=== PATIENT | female | born 1950 | race Caucasian/White ===

== ENCOUNTER 2020-01-16 08:59 | Inpatient (IN) | payer MEDICARE ==
[~2020-01-16] VITALS: Ht 170.2 cm; Wt 112.9 kg
--- NOTE | 2020-01-16 09:10 | NUR ---
PT BIB RELATIVE C/O R sided facial droop/numbness since waking up this morning last known well 01/16/2020 10:00pm, PT IS AAOX4, NOT IN RESPIRATORY DISTRESS, HOOKED TO DEMAND EQUIPMENT REPAIRER, KEPT RESTED AND COMFORTABLE, WILL CONTINUE TO MONITOR.
--- NOTE | 2020-01-16 09:11 | NUR ---
IV LINE ESTABLISHED, BLOOD DRAWN AND SENT TO LAB.
--- NOTE | 2020-01-16 09:13 | NUR ---
SEEN AND EXAMINED BY
--- NOTE | 2020-01-16 09:15 | NUR ---
CODE STROKE ACTIVATED.
--- NOTE | 2020-01-16 09:15 | NUR ---
TELE STROKE ACTIVATED.
--- NOTE | 2020-01-16 09:16 | NUR ---
PT IS WHEELED TO CT SCAN VIA [facility].
[2020-01-16] MEDS ORDERED: CT SWABBABLE VALVE TRANS SET 1 EA INFUS.SET MC ONE (09:18)
[2020-01-16] MEDS ORDERED: IOHEXOL-350 100 ML VIAL IV ONE (09:18)
[2020-01-16] MEDS ORDERED: IV NS 0.9% 250 ML IV ONE (09:19)
[2020-01-16 09:20] LABS: BASOPHILS # (AUTO) 0.1 /CMM (0.0-0.2); BASOPHILS % (AUTO) 0.9 % (0.0-2.0); EOSINOPHILS % (AUTO) 2.3 % (0.0-6.0); HEMATOCRIT 41 % (33-45); HEMOGLOBIN 13.6 g/dL (11.5-14.8); LYMPHOCYTES # (AUTO) 2.4 /CMM (0.8-4.8); LYMPHOCYTES % (AUTO) 22.5 % (20.0-44.0); MEAN CORPUSCULAR HGB CONC 33 g/dl (31.0-36.0); MEAN CORPUSCULAR VOLUME 84 fL (82-100); MONOCYTES # (AUTO) 0.8 /CMM (0.1-1.30); MONOCYTES % (AUTO) 7.8 % (2.0-12.0); NEUTROPHILS % (AUTO) 66.5 % (43.0-81.0); PLATELET COUNT (AUTO) 353 /CMM (150-450); RED BLOOD CELL COUNT(AUTO) 4.88 MIL/uL (4.0-5.2); WHITE BLOOD COUNT (AUTO) 10.5 K/uL (4.3-11.0)
--- NOTE | 2020-01-16 09:26 | NUR ---
PT IS BACK FROM THE CT SCAN.
[2020-01-16 09:29] LABS: CARBON DIOXIDE 29 mmol/L (21-32); CHLORIDE 103 mmol/L (98-107); CREATININE 0.8 mg/dL (0.6-1.3); GLUCOSE 95 mg/dL (74-106); SODIUM SERUM 139 mmol/L (136-145); UREA NITROGEN, BLOOD 17 mg/dL (7-18)
[2020-01-16 09:34] LABS: ALANINE AMINOTRANSFERASE 19 U/L (12-78); ALBUMIN 3.6 g/dL (3.4-5.0); ALKALINE PHOSPHATASE 126 U/L (46-116); ASPARTATE AMINOTRANSFERASE 14 U/L (15-37); BILIRUBIN,DIRECT 0.1 mg/dL (0.0-0.2); BILIRUBIN,TOTAL 0.5 mg/dL (0.2-1.0)
[2020-01-16 09:37] LABS: CHOLESTEROL 177 mg/dL (<200); HDL CHOLESTEROL 62 mg/dL (40-60); LDL 103 mg/dL (0-99); TRIGLYCERIDES 48 mg/dL (30-150)
[2020-01-16] MEDS ORDERED: IPRA4AER IH (09:59)
[2020-01-16] MEDS ORDERED: FLUT12AE5 IH (09:59)
[2020-01-16] MEDS ORDERED: LOVA40TA2 PO (09:59)
[2020-01-16] MEDS ORDERED: LACT1CAP71 PO (09:59)
[2020-01-16] MEDS ORDERED: MULT-447 PO (09:59)
[2020-01-16] MEDS ORDERED: DIPH25CA51 PO (09:59)
[2020-01-16] MEDS ORDERED: OMEP20CA15 PO (09:59)
[2020-01-16] MEDS ORDERED: LEVO75TA7 PO (09:59)
[2020-01-16] MEDS ORDERED: HYDR12.55 PO (09:59)
[2020-01-16] MEDS ORDERED: LISI40TA4 PO (09:59)
[2020-01-16] MEDS ORDERED: CYCL5TAB PO (09:59)
[2020-01-16] MEDS ORDERED: GABA-534 PO (09:59)
[2020-01-16] MEDS ORDERED: NYST15OI2 TP (10:00)
--- NOTE | 2020-01-16 10:21 | NUR ---
NURSING SUP GAVE TELE BED 111-1.
--- NOTE | 2020-01-16 11:05 | NUR ---
REPORT GIVEN TO EVANGELINA GOMES FOR [facility]UGIE.
--- NOTE | 2020-01-16 11:38 | NUR ---
LICENSED THERAPIST NOTES PATIENT A/O X4 , PATIENT IN ROOM ARE SATURATING AT < 95 % . NO SOB, NO PAIN, NO ACUTE RESPIRATORY DISTRESS .PATIENT HAS NO SKIN ISSUES. FACIAL EXPRESS SYMMETRICAL. PATIENT SPEECH IS CLEAR AND COHERENT. PATIENT FOLLOWS COMMANDS . PATIENTS UPPER AND LOWEER EXTREMITIES WNL. PATINT HAS EXTERNAL CARDIAC MONTITOR 80-100 SR. PATIENT HAS NO SKIN ISSUES. BED LOCKED AND LOWEST POSITION CALL LIGHT IWTH IN REACH ALL SAFETY MEASURE IMPLEMENTED PER HOSPITAL POLICY
[2020-01-16 12:43] VITALS: BP 131/79
[2020-01-16] MEDS ORDERED: CYCLOBENZAPRINE 10 MG TABLET PO PRN (13:00)
[2020-01-16] MEDS ORDERED: ASPIRIN EC 325 MG TABLET.DR PO SCH (13:00)
[2020-01-16] MEDS ORDERED: NYSTATIN/TRIAMCIN OINT 15 GM TUBE TP SCH (13:00)
[2020-01-16] MEDS ORDERED: MAG HYDROX/AL HYDROX/SIMETH 30 ML UDC PO PRN (13:00)
[2020-01-16] MEDS ORDERED: ACIDOPHILUS/BULGARICUS 1 EACH TAB.CHEW PO SCH (13:00)
[2020-01-16] MEDS ORDERED: ACETAMINOPHEN 650 MG/SUPP.RECT RC PRN (13:00)
[2020-01-16] MEDS ORDERED: ACETAMINOPHEN 325 MG TABLET PO PRN (13:00)
[2020-01-16] MEDS ORDERED: GABAPENTIN 300 MG CAPSULE PO SCH (13:00)
[2020-01-16] MEDS ORDERED: ALBUTEROL FS 2.5 MG/0.5 ML VIAL.NEB NEB SCH (13:30)
[2020-01-16] MEDS ORDERED: IPRATROPIUM NEB FS 0.5 MG/2.5 ML AMPUL.NEB NEB SCH (13:30)
[2020-01-16 16:00] VITALS: BP 131/79
[2020-01-16] MEDS ORDERED: PANTOPRAZOLE 40 MG TABLET.DR PO SCH (17:00)
--- NOTE | 2020-01-16 17:47 | NUR ---
FISH CONSERVATIONIST CLOSING AMA PATIENT SIGNED AMA PAPER WORK. PATIENT STATE SHE DOESNT WANNA STAY AT THE HOSPITAL AND WANTED TO GO ON THE TRIP WITH HER FAMILY . SHE SAID HE FEELS GREAT. FAMILY AT BEDSIDE ALL FOUND NO DEFICIENTS. CHARGE NURSE INFORMED , PRIMARY PROVIDER INFORMED ABOUT PATIENT.
[2020-01-16] MEDS ORDERED: ATORVASTATIN 40 MG TABLET PO SCH (22:00)
[2020-01-17] MEDS ORDERED: LEVOTHYROXINE SODIUM 75 MCG TABLET PO SCH (07:30)
[2020-01-17] MEDS ORDERED: MULTIVIT W/MINERALS 1 TAB TABLET PO SCH (09:00)
[2020-01-17] MEDS ORDERED: FLUTICASONE/VILANTEROL 1 EACH BLST.W.DEV IH SCH (09:00)
[2020-01-17] MEDS ORDERED: LISINOPRIL (20MG) 20 MG TABLET PO SCH (09:00)
[2020-01-17] MEDS ORDERED: HYDROCHLOROTHIAZIDE 25 MG TABLET PO SCH (09:00)
== END 2020-01-16 18:19 | disposition left against medical advice (07) | DRG 69 ==
LOC: ER 08:59 → TELE1 11:24 → EDBD 11:24 → TELE1 11:37
PROVIDERS: ADMIT Nurse Practitioner Acute Care; ATTEND Nurse Practitioner Acute Care
DX: G45.9 Transient cerebral ischemic attack, unspecified (principal); Z79.899 Other long term (current) drug therapy; E78.5 Hyperlipidemia, unspecified; I10 Essential (primary) hypertension; K21.9 Gastro-esophageal reflux disease without esophagitis; Z83.3 Family history of diabetes mellitus; Z90.710 Acquired absence of both cervix and uterus; I67.2 Cerebral atherosclerosis; E66.9 Obesity, unspecified; Z86.69 Personal history of other diseases of the nervous system and sense organs
CPT/HCPCS: 36415; 70450-TC; 70496-TC; 70498-TC; 71045-TC; 80048-TC; 80061-TC; 80076-TC; 82962-TC; 83605-TC; 84484-TC; 85025-TC; 85730-TC; 87081-TC; 97116-TC; 97530-TC; G0378; J7050; Q9967